=== PATIENT | male | born 1955 | race Caucasian/White ===

== ENCOUNTER 2022-07-03 08:19 | Outpatient (CLI) | payer BC, MEDICARE | END 2022-07-03 08:20 | disposition home or self-care (01) | LOC: CSHRAD 08:19 | PROVIDERS: ATTEND Internal Medicine Rheumatology | DX: M25.552 Pain in left hip (principal); M16.12 Unilateral primary osteoarthritis, left hip ==

== ENCOUNTER 2022-11-04 09:32 | Outpatient (CLI) | payer BC | END 2022-11-04 09:33 | disposition home or self-care (01) | LOC: CSHMRI 09:32 | PROVIDERS: ATTEND Internal Medicine Rheumatology | DX: M75.101 Unspecified rotator cuff tear or rupture of right shoulder, not specified as traumatic (principal); M75.91 Shoulder lesion, unspecified, right shoulder; S43.431A Superior glenoid labrum lesion of right shoulder, initial encounter; M94.8X1 Other specified disorders of cartilage, shoulder ==